=== PATIENT | male | born 1985 | race Caucasian/White ===

== ENCOUNTER 2019-04-21 14:16 | Inpatient (IN) | payer OTHER ==
[~2019-04-21] VITALS: Ht 175.3 cm; Wt 70.3 kg
[2019-04-21] MEDS ORDERED: MAGNESIUM HYDROXIDE SUSPENSION 30 ML UDCUP PO PRN (15:15)
[2019-04-21] MEDS ORDERED: ACETAMINOPHEN 325 MG TABLET PO PRN (15:15)
[2019-04-21 15:30] LABS: BASOPHILS % (AUTO) 1.2 % (0.0-2.0); HEMATOCRIT 44.7 % (41-53); HEMOGLOBIN 15.4 g/dL (13.5-17.5); LYMPHOCYTES # (AUTO) 1.5 K/uL (1.0-4.8); MEAN CORPUSCULAR HEMOGLOBIN 30.7 pg (26.0-34.0); MEAN CORPUSCULAR HGB CONC 34.4 G/dL (31.0-37.0); MEAN CORPUSCULAR VOLUME 89 fL (80-100); MONOCYTES % (AUTO) 12.5 % (2.0-9.0); NEUTROPHILS # (AUTO) 5.6 K/uL (1.8-7.7); NEUTROPHILS % (AUTO) 67.3 % (40.0-70.0); PLATELET COUNT (AUTO) 285 K/uL (150-450); RED BLOOD CELL COUNT(AUTO) 5.01 MIL/uL (4.50-5.90)
[2019-04-21 15:45] LABS: ANION GAP 12 mmol/L (8-16); CALCIUM, TOTAL 9.1 mg/dL (8.8-10.5); CARBON DIOXIDE 25 mmol/L (22-29); CHLORIDE 101 mmol/L (98-107); CREATININE 0.65 mg/dL (0.60-1.30); GLOMERULAR FILTR. RATE CALC > 60 mL/min (>60); GLUCOSE,RANDOM 94 mg/dL (70-110); POTASSIUM 4.2 mmol/L (3.5-5.1); SODIUM SERUM 138 mmol/L (136-145); UREA NITROGEN, BLOOD 23 mg/dL (7-18)
[2019-04-21 15:50] LABS: ALANINE AMINOTRANSFERASE 34 U/L (12-78); ALBUMIN 4.4 g/dL (3.4-5.0); ALKALINE PHOSPHATASE 96 U/L (46-116); ASPARTATE AMINOTRANSFERASE 33 U/L (15-37); BILIRUBIN,TOTAL 1.4 mg/dL (0.1-1.0); TOTAL PROTEIN, SERUM 7.5 g/dL (6.4-8.2)
[2019-04-21 16:13] VITALS: BP 137/89
[2019-04-21 19:30] VITALS: BP 137/89
[2019-04-21] MEDS ORDERED: HALOPERIDOL LACTATE 5 MG/ML VIAL IM PRN (20:30)
[2019-04-22 04:00] VITALS: BP 128/84
[2019-04-22] MEDS: LORazepam 2 MG TABLET PO PRN (08:34)
[2019-04-22] MEDS: FAMOTIDINE 20 MG TABLET PO SCH (08:35)
[2019-04-22 09:27] VITALS: BP 106/83
[2019-04-22 15:10] VITALS: BP 115/93
[2019-04-22 20:16] VITALS: BP 111/66
[2019-04-23 04:25] VITALS: BP 117/69
[2019-04-23 08:13] VITALS: BP 120/80
[2019-04-23] MEDS: FAMOTIDINE 20 MG TABLET PO SCH (08:13)
[2019-04-23 16:01] VITALS: BP 124/68
[2019-04-23 20:00] VITALS: BP 121/68
[2019-04-24 05:35] VITALS: BP 122/84
[2019-04-24 07:29] VITALS: BP 120/67
[2019-04-24] MEDS: FAMOTIDINE 20 MG TABLET PO SCH (08:59)
[2019-04-24 16:07] VITALS: BP 118/69
[2019-04-24 20:15] VITALS: BP 121/59
[2019-04-24] MEDS: LORazepam 2 MG TABLET PO PRN (21:01)
[2019-04-25 04:40] VITALS: BP 117/74
[2019-04-25 07:47] VITALS: BP 120/58
[2019-04-25] MEDS: FAMOTIDINE 20 MG TABLET PO SCH (09:00)
[2019-04-25 17:10] VITALS: BP 109/71
[2019-04-25 20:30] VITALS: BP 109/63
[2019-04-25] MEDS: LORazepam 2 MG TABLET PO PRN (21:45)
[2019-04-26 04:50] VITALS: BP 114/80
[2019-04-26] MEDS: FAMOTIDINE 20 MG TABLET PO SCH (08:07)
[2019-04-26 08:12] VITALS: BP 123/72
[2019-04-26 16:23] VITALS: BP 126/74
[2019-04-26 19:45] VITALS: BP 123/77
[2019-04-26] MEDS: LORazepam 2 MG TABLET PO PRN (21:28)
[2019-04-27 04:25] VITALS: BP 99/68
[2019-04-27 07:44] VITALS: BP 114/54
[2019-04-27] MEDS: FAMOTIDINE 20 MG TABLET PO SCH (08:16)
== END 2019-04-27 13:25 | DRG 885 ==
LOC: EMS 14:21 → 6S 14:33
PROVIDERS: ADMIT Internal Medicine; ATTEND Internal Medicine
DX: F29 Unspecified psychosis not due to a substance or known physiological condition (principal); R45.851 Suicidal ideations; F15.10 Other stimulant abuse, uncomplicated; F17.210 Nicotine dependence, cigarettes, uncomplicated; F12.90 Cannabis use, unspecified, uncomplicated
CPT/HCPCS: G0480; J1630